=== PATIENT | female | born 1970 | race Caucasian/White ===

== ENCOUNTER → 2019-09-01 | Outpatient (CLI) | payer OTHER ==
--- NOTE | 2019-09-01 14:52 | RAD ---
Gastric emptying nuclear medicine study History:Nausea and vomiting. No appetite for 4 weeks. COMPARISON: Technique: After oral ingestion of an egg meal containing 2 mCi of technetium 99m sulfur colloid, anterior and posterior planar images of the upper abdomen were performed immediately and at 1 hour and 2 hour and 3 hour and 4 hour increments. Percent retention of radiotracer activity was measured and calculated at 1 hour and 2 hour and 3 hour and 4 hour increments. Half time gastric clearance was measured and calculated as well. Findings: Percent retention at 1 hour is 100%. Normal range is 34.8% to 91%. Percent retention at 2 hours is 64%. Normal range is 2.7% to 60%. Percent retention at 3 hours is 41%. Normal range is 0.5% to 28%. Percent retention at 4 hours is 26%. Normal range is 0% to 10%. In addition, half time gastric clearance was measured and calculated to be 158 minutes. Normal range is 45-90 minutes. Impression: Delayed gastric emptying. Electronically signed by: Víctor Leon MD (09/01/2019 2:49 PM) [facility]
== END | disposition home or self-care (01) ==
LOC: NM 14:41
PROVIDERS: ATTEND Internal Medicine Gastroenterology
DX: K30 Functional dyspepsia (principal)
CPT/HCPCS: 78264; A9541